=== PATIENT | female | born 1990 | race Caucasian/White ===

== ENCOUNTER 2020-12-05 23:51 | Emergency (ER) | payer MEDICAID, MEDICARE ==
[~2020-12-05] VITALS: Ht 162.6 cm; Wt 132.3 kg
[~2020-12-05 23:51] MED LIST: DICL50TA6 PO; ESTRADIOL PO; LEVO125T PO; PRAV20TA3 PO; RT-ALBUINH IH; flexeril PO
--- NOTE | 2020-12-06 00:07 | ED Chest Pain ---
General Stated Complaint: LOC/CONFUSION/CHEST PAIN/WEAKNESS Source: patient Exam Limitations: no limitations History of Present Illness Date Seen by Provider: Dec 05, 2020 Time Seen by Provider: 23:57 Initial Comments Patient to the ER by private conveyance with her significant other and chief complaint that she just came from the ER at [place], [place] with chief complaint of 2-3 days of progressively worsening chest pain in the middle of her chest with some radiation of pain down her left shoulder and tingling in her left fingertips as well as numbness on the right side of her face. She describe s the pain as though someone is sitting on her chest squeezing all of the air out of her. She also became nauseated and started vomiting tonight while in the car. She has had some loose watery stools. No fever or chills. No sick contacts. Mom and dad both experience heart attacks in her early 40s. She has no known heart disease but she does have asthma and takes breathing treatments as necessary. She is had no wheezing although she does have some shortness of breath subjectively tonight. She says she was at the ER and had labs drawn as well as an EKG which was told to be normal. She did not stick around for her lab results however because she felt it was taking too long. The patient is not on control. She quit smoking 2 months ago. She does not have a history of hypertension but she does have a history of hyperlipidemia. She denies diabetes. She follows with primary care at [facility]. Allergies and Home Medications Allergies Coded Allergies: Penicillins (Verified Allergy, Severe, 11/05/15) ketorolac (Verified Allergy, Severe, 11/05/15) meperidine (Verified Allergy, Severe, 11/05/15) Home Medications Diclofenac Sodium 50 Mg Tablet.dr, 50 MG PO TID PRN for PAIN Prescribed by: ALISSON KULKARNI on 11/05/15 1651 Hydrocodone/Acetaminophen 1 Each Tablet, 1 TAB PO Q6H PRN for PAIN-MODERATE (5- 7) Prescribed by: CORKY ADAMS on 12/06/20 031 Levothyroxine Sodium 125 Mcg Tablet, 125 MCG PO DAILY, (Reported) Ondansetron 4 Mg Tab.rapdis, 4 MG PO Q6H PRN for NAUSEA/VOMITING Prescribed by: CORKY ADAMS on 12/06/20 0310 Pravastatin Sodium 20 Mg Tablet, 20 MG PO DAILY, (Reported) [Estradiol ] , 1 MG PO DIRECTED, (Reported) [flexeril] , 5 MG PO Q8H PRN for PAIN Prescribed by: ALISSON KULKARNI on 11/05/15 1651 Patient Home Medication List Home Medication List Reviewed: Yes Review of Systems Review of Systems Constitutional: No chills, No diaphoresis EENTM: No Blurred Vision, No Double Vision Respiratory: Denies Cough, Denies Shortness of Air Cardiovascular: See HPI, Chest Pain Gastrointestinal: Denies Abdomen Distended, Denies Abdominal Pain Genitourinary: Denies Burning, Denies Discharge Musculoskeletal: No back pain, No joint pain Skin: No pruritus, No rash Psychiatric/Neurological: Anxiety; Denies Depressed Endocrine: Denies Excessive Sweating, Denies Intolerance to Cold, Denies Intolerance to Heat All Other Systems Reviewed Negative Unless Noted: Yes Past Xyxqmxr-Qjxnwr-Iwmkjh Hx Patient Social History Alcohol Use: Denies Use Drug of Choice: Denies Smoking Status: Former Smoker Type Used: Cigarettes Former Smoker, Quit: Sep 10, 2020 Seasonal Allergies Seasonal Allergies: Yes Past Medical History Hysterectomy, Tonsillectomy 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 oz. 115.453384qu; BMI Method:Stated General Appearance: Anxious (Tearful), Obese HEENT: PERRL/EOMI, Pharynx Normal, Moist Mucous Membranes Neck: Full Range of Motion, Normal Inspection Respiratory: Chest Non Tender, Lungs Clear, Normal Breath Sounds, No Accessory Muscle Use, No Respiratory Distress Cardiovascular: Regular Rate, Rhythm, No Edema, Normal Peripheral Pulses Gastrointestinal: Normal Bowel Sounds, Non Tender, Soft Extremity: Normal Capillary Refill, Non Tender, No Pedal Edema Neurologic/Psychiatric: Alert, Oriented x3, No Motor/Sensory Deficits Skin: Normal Color, Warm/Dry Progress/Results/Core Measures Results/Orders Lab Results Laboratory Tests Test 12/06/20 00:05 12/06/20 00:15 12/06/20 02:00 Range/Units White Blood Count 9.6 4.3-11.0 10^3/uL Red Blood Count 5.20 H 3.80-5.11 10^6/uL Hemoglobin 14.6 11.5-16.0 g/dL Hematocrit 44 35-52 % Mean Corpuscular Volume 85 80-99 fL Mean Corpuscular Hemoglobin 28 25-34 pg Mean Corpuscular Hemoglobin Concent 33 32-36 g/dL Red Cell Distribution Width 14.1 10.0-14.5 % Platelet Count 345 130-400 10^3/uL Mean Platelet Volume 10.0 9.0-12.2 fL Immature Granulocyte % (Auto) 0 % Neutrophils (%) (Auto) 56 42-75 % Lymphocytes (%) (Auto) 35 12-44 % Monocytes (%) (Auto) 6 0-12 % Eosinophils (%) (Auto) 2 0-10 % Basophils (%) (Auto) 1 0-10 % Neutrophils # (Auto) 5.4 1.8-7.8 10^3/uL Lymphocytes # (Auto) 3.4 1.0-4.0 10^3/uL Monocytes # (Auto) 0.5 0.0-1.0 10^3/uL Eosinophils # (Auto) 0.2 0.0-0.3 10^3/uL Basophils # (Auto) 0.1 0.0-0.1 10^3/uL Immature Granulocyte # (Auto) 0.0 0.0-0.1 10^3/uL Prothrombin Time 13.9 12.2-14.7 SEC INR Comment 1.0 0.8-1.4 Activated Partial Thromboplast Time 29 24-35 SEC D-Dimer < 0.27 0.00-0.49 UG/ML Sodium Level 142 135-145 MMOL/L Potassium Level 3.4 L 3.6-5.0 MMOL/L Chloride Level 107 98-107 MMOL/L Carbon Dioxide Level 19 L 21-32 MMOL/L Anion Gap 16 H 5-14 MMOL/L Blood Urea Nitrogen 5 L 7-18 MG/DL Creatinine 0.72 0.60-1.30 MG/DL Estimat Glomerular Filtration Rate > 60 BUN/Creatinine Ratio 7 Glucose Level 127 H 70-105 MG/DL Calcium Level 9.8 8.5-10.1 MG/DL Corrected Calcium 8.5-10.1 MG/DL Magnesium Level 2.0 1.6-2.4 MG/DL Total Bilirubin 0.3 0.1-1.0 MG/DL Aspartate Amino Transf (AST/SGOT) 105 H 5-34 U/L Alanine Aminotransferase (ALT/SGPT) 115 H 0-55 U/L Alkaline Phosphatase 82 40-136 U/L Myoglobin 43.1 10.0-92.0 NG/ML Troponin I < 0.028 < 0.028 <0.028 NG/ML B-Type Natriuretic Peptide < 10.0 <100.0 PG/ML Total Protein 8.2 6.4-8.2 GM/DL Albumin 4.7 H 3.2-4.5 GM/DL Lipase 14 8-78 U/L Influenza Type A (RT-PCR) Not Detected Not Detecte Influenza Type B (RT-PCR) Not Detected Not Detecte SARS-CoV-2 RNA (RT-PCR) Not Detected Not Detecte My Orders Orders - CORKY ADAMS Cbc With Automated Diff (12/06/20 00:03) Magnesium (12/06/20 00:03) Chest 1 View, Ap/Pa Only (12/06/20 00:03) Ekg Tracing (12/06/20 00:03) Comprehensive Metabolic Panel (12/06/20 00:03) Myoglobin Serum (12/06/20 00:03) Protime With Inr (12/06/20:03) Partial Thromboplastin Time (12/06/20 00:03) O2 (12/06/20 00:03) Monitor-Rhythm Ecg Trace Only (12/06/20 00:03) Ed Iv/Invasive Line Start (12/06/20 00:03) Lipase (12/06/20 00:03) BNP (12/06/20 00:03) Fibrin Degradation Products (12/06/20 00:03) Troponin I (12/06/20 00:03) Nitroglycerin 0.4 Mg Btl 25's (Nitrostat (12/06/20 00:15) Aspirin Chewable Tablet (Baby Aspirin Ch (12/06/20 00:15) Ondansetron Injection (Zofran Injectio (12/06/20 00:15) Urine Bedside (12/06/20 00:07) Covid 19 Inhouse Test (12/06/20 00:07) Influenza A And B By Pcr (12/06/20 00:07) Lidocaine 2% Viscous 15 Ml (Xylocaine Vi (12/06/20 01:00) Antacid Suspension (Mylanta Suspension (12/06/20 01:00) Famotidine Injection (Pepcid Injection) (12/06/20 00:55) Troponin I (12/06/20 02:00) Morphine Injection (Morphine Injection (12/06/20 02:07) Promethazine Injection (Phenergan Injec (12/06/20 02:45) Fentanyl Inj (Sublimaze Injection) (12/06/20 02:45) Hydrocodone/Apap 5/325 Tablet (Lortab 5 (12/06/20 03:00) Medications Given in ED Vital Signs/I&O 12/05/20 12/05/20 12/06/20 23:55 23:55 03:30 Temp 36.2 36.2 Pulse 77 72 Resp 18 19 B/P (MAP) 126/83 (97) 111/90 (97) Pulse Ox 100 98 O2 Delivery Room Air Room Air Room Air Progress Progress Note #1: Time: 00:10 Progress Note Patient with some chest pain and shortness of air but no hypoxia, tachypnea or tachycardia. Blood pressures acceptable 120s over 70s. Differential includes coronary given her family history, smoking, obesity, hyperlipidemia. Pulmonary embolism is a possibility, infection although she is not having fever. She does not have bronchospasm evident on auscultation. Plan to check some labs including a D-dimer and lipase. EKG unremarkable. Troponin will be pending as well as get a urinalysis and bedside and drug screen. Swab for Covid. Chest x-ray. With a negative initial troponin her heart score would be 3 points and we would probably repeat a 2-hour score before clearing her from active coronary disease. She has already received 324 mg by aspirin from EMS on route to [place] at 1600 today. We will give her 1 more 81 mg tablet of aspirin and trial some nitroglycerin. If this does not help we may trial some GI tract medicines. Progress Note #2: Time: 02:08 Progress Note Patient reports the GI cocktail made no difference in her pain. We will give her 4 mg of morphine IV. Delta troponin obtained. She been having the pain for the past several days so if the second troponin is still undetectable we will have her follow-up outpatient with Dr. Torres. She certainly has some significant cardiac risk factors despite her age including her obesity, hyper lipidemia, family history of mother and father prior to the age of 50 having heart attacks and recent smoking. Initial ECG Impression Date: Dec 06, 2020 Initial ECG Impression Time: 00:00 Initial ECG Rate: 79 Initial ECG Rhythm: Normal Sinus Initial ECG Intervals: Normal Initial ECG Impression: Normal Initial ECG Comparisson: No Previous ECG Available Comment Normal sinus rhythm without clinically relevant ST elevation or depression Diagnostic Imaging Diagonstic Imaging: Xray Plain Films/CT/US/NM/MRI: chest Comments Unremarkable chest x-ray with no acute cardiopulmonary process on 1 view. [facility] [place] NAME: WU ZIMMERMAN [facility] REC#: [id number] PT STATUS: DEP ER : 1990 PHYSICIAN: CORKY ADAMS MD ADMIT DATE: 12/05/20/ER Signed Date of Exam:12/06/20 CHEST 1 VIEW, AP/PA ONLY EXAMINATION: Chest radiograph, portable AP view. DATE: 12/06/2020 12:27 AM INDICATION: 30-year-old female, chest pain. COMPARISON: None. FINDINGS: Heart size and mediastinal contours are unremarkable. There is no identified pneumothorax. There is no large pleural effusion. There is no identified focal airspace consolidation. There are technical limitations of the exam relating to patient body habitus and difficulties with exposure. IMPRESSION: 1. No identified acute cardiopulmonary abnormality. 2. Technically limited exam. Dictated by: Dictated on workstation # [id number] Dict: 12/06/20 0722 Trans: 12/06/20 [address] [facility] [id number] Interpreted by: ZHAO CUNNINGHAM MD Electronically signed by: ZHAO CUNNINGHAM MD 12/06/20 0833 Reviewed: Reviewed by Me Departure Impression Primary Impression: Chest pain Qualified Codes: R07.9 - Chest pain, unspecified Disposition: 01 HOME, SELF-CARE Condition: Stable Departure-Patient Inst. Decision time for Depature: 03:07 Referrals: LIBIA TORRES MD FACP FAC CCDS NO,LOCAL PHYSICIAN (PCP) Primary Care Physician Patient Instructions: Chest Pain (DC) Add. Discharge Instructions: Call Dr. Torres at his clinic on Monday and follow-up in the next 2 to 3 days. Return to the ER promptly for severe, intractable chest pain. Zofran 1 tablet under the tongue every 6 hours as necessary for nausea and/or vomiting. Hydrocodone 1 tablet every 6 hours as necessary for severe breakthrough pain not controlled by Tylenol or Motrin. Scripts Ondansetron (Ondansetron Odt) 4 Mg Tab.rapdis 4 MG PO Q6H PRN for NAUSEA/VOMITING, #8 TAB 0 Refills Prov: CORKY ADAMS 12/06/20 Hydrocodone/Acetaminophen (Hydrocodone-Acetamin 5-325 mg) 1 Each Tablet 1 TAB PO Q6H PRN for PAIN-MODERATE (5-7), #8 TAB 0 Refills Prov: CORKY ADAMS 12/06/20 Copy Copies To 1: LIBIA TORRES MD FACP FACC CCDS CORKY ADAMS Dec 06, 2020 00:07
[2020-12-06] MEDS ORDERED: ONDANSETRON 4 MG/2 ML (SDV) Z0FRAN IVP ONE (00:15)
[2020-12-06] MEDS ORDERED: ASPIRIN 81 MG CHEW (CHILDREN'S ASA) PO ONE (00:15)
[2020-12-06] MEDS ORDERED: NITROGLYCERIN 0.4 MG SL TABS BTL 25'S SL PRN (00:15)
[2020-12-06 00:20] LABS: BASOPHILS # (AUTO) 0.1 10^3/uL (0.0-0.1); BASOPHILS % (AUTO) 1 % (0-10); EOSINOPHILS # (AUTO) 0.2 10^3/uL (0.0-0.3); EOSINOPHILS % (AUTO) 2 % (0-10); HEMATOCRIT 44 % (35-52); HEMOGLOBIN 14.6 g/dL (11.5-16.0); LYMPHOCYTES # (AUTO) 3.4 10^3/uL (1.0-4.0); LYMPHOCYTES % (AUTO) 35 % (12-44); MEAN CORPUSCULAR HEMOGLOBIN 28 pg (25-34); MEAN CORPUSCULAR HGB CONC 33 g/dL (32-36); MEAN CORPUSCULAR VOLUME 85 fL (80-99); MONOCYTES # (AUTO) 0.5 10^3/uL (0.0-1.0); MONOCYTES % (AUTO) 6 % (0-12); NEUTROPHILS # (AUTO) 5.4 10^3/uL (1.8-7.8); NEUTROPHILS % (AUTO) 56 % (42-75); PLATELET COUNT 345 10^3/uL (130-400); WHITE BLOOD COUNT 9.6 10^3/uL (4.3-11.0)
[2020-12-06 00:27] LABS: PROTHROMBIN TIME PATIENT 13.9 SEC (12.2-14.7)
[2020-12-06 00:29] LABS: ALBUMIN 4.7 GM/DL (3.2-4.5); CHLORIDE 107 MMOL/L (98-107); POTASSIUM 3.4 MMOL/L (3.6-5.0); SODIUM 142 MMOL/L (135-145)
[2020-12-06 00:30] LABS: CALCIUM 9.8 MG/DL (8.5-10.1)
[2020-12-06 00:31] LABS: GLUCOSE 127 MG/DL (70-105); TOTAL PROTEIN 8.2 GM/DL (6.4-8.2)
[2020-12-06 00:32] LABS: CARBON DIOXIDE 19 MMOL/L (21-32)
[2020-12-06 00:33] LABS: BILIRUBIN,TOTAL 0.3 MG/DL (0.1-1.0)
[2020-12-06 00:35] LABS: ALKALINE PHOSPHATASE 82 U/L (40-136); CREATININE SERUM 0.72 MG/DL (0.60-1.30); GFR ESTIMATED > 60
[2020-12-06 00:36] LABS: BUN/CREATININE RATIO 7
[2020-12-06 00:38] LABS: ALANINE AMINOTRANSFERASE 115 U/L (0-55)
[2020-12-06 00:39] LABS: LIPASE 14 U/L (8-78)
[2020-12-06] MEDS ORDERED: FAMOTIDINE 20MG/2ML IV (PEPCID) IV STA (00:55)
[2020-12-06] MEDS ORDERED: LIDOCAINE 2% VISCOUS 15 ML UDC PO ONE (01:00)
[2020-12-06] MEDS ORDERED: ANTACID SUSP 30 ML UDC (MYLANTA) PO ONE (01:00)
[2020-12-06] MEDS ORDERED: morphine INJ 10 MG/ML 1ML (SYR OR VIAL) IVP STA (02:07)
[2020-12-06] MEDS ORDERED: PROMETHAZINE INJ 25 MG/ML (PHENERGAN) AMP IVP ONE (02:45)
[2020-12-06] MEDS ORDERED: fentaNYL INJ 100 MCG/2 ML AMP IVP ONE (02:45)
[2020-12-06] MEDS ORDERED: HYDROcodone/APAP 5 MG/325 MG (LORTAB) TAB PO ONE (03:00)
[2020-12-06] MEDS ORDERED: ONDA4TAB11 PO (03:10)
[2020-12-06] MEDS ORDERED: ACHD5005 PO (03:10)
[2020-12-06 03:30] VITALS: BP 111/90
--- NOTE | 2020-12-06 07:28 | Diagnostic Imaging Report ---
EXAMINATION: Chest radiograph, portable AP view. DATE: 12/06/2020 12:27 AM INDICATION: 30-year-old female, chest pain. COMPARISON: None. FINDINGS: Heart size and mediastinal contours are unremarkable. There is no identified pneumothorax. There is no large pleural effusion. There is no identified focal airspace consolidation. There are technical limitations of the exam relating to patient body habitus and difficulties with exposure. IMPRESSION: 1. No identified acute cardiopulmonary abnormality. 2. Technically limited exam. Dictated by: Dictated on workstation # [id number]
== END 2020-12-06 03:30 | disposition home or self-care (01) ==
LOC: EDUNIT# 23:51 → ER 23:52
DX: R07.9 Chest pain, unspecified (principal); I10 Essential (primary) hypertension; J45.909 Unspecified asthma, uncomplicated; G89.29 Other chronic pain; M54.9 Dorsalgia, unspecified; E03.9 Hypothyroidism, unspecified; E66.9 Obesity, unspecified; Z20.822 Contact with and (suspected) exposure to COVID-19; Z87.891 Personal history of nicotine dependence; Z79.890 Hormone replacement therapy; Z68.45 Body mass index [BMI] 70 or greater, adult; Z79.891 Long term (current) use of opiate analgesic; Z79.899 Other long term (current) drug therapy
CPT/HCPCS: 36415; 71045; 80053; 83690; 83735; 83874; 83880; 84484; 85025; 85379; 85610; 85730; 87636; 93005; 93041; 96374; 96375

== ENCOUNTER 2022-03-18 20:05 | Emergency (ER) | payer MEDICAID ==
[~2022-03-18] VITALS: Ht 170 cm; Wt 113.0 kg
[~2022-03-18 20:05] MED LIST changes: +ACHD5005 PO; +ONDA4TAB11 PO
--- NOTE | 2022-03-18 20:12 | ED General ---
General Stated Complaint: BACK PAIN Source of Information: Patient, EMS Exam Limitations: No Limitations History of Present Illness Date Seen by Provider: Mar 18, 2022 Time Seen by Provider: 20:10 Initial Comments To ER by EMS from somewhere out in front of [place] where she complains of some low back pain that radiates around her abdomen which started suddenly after she was at [facility] trying to collect a [place] that she had 1 sometime back. Her family dropped her off there because they "do not give a fuck about her". She was at the [facility] when she was kicked off the property and told not to come back and the police were called she states. She denies any drug use for several months. Timing/Duration: 1-3 Hours Severity: Moderate Associated Systoms: Denies Symptoms Allergies and Home Medications Allergies Coded Allergies: Penicillins (Verified Allergy, Severe, 11/05/15) ketorolac (Verified Allergy, Severe, 11/05/15) meperidine (Verified Allergy, Severe, 11/05/15) Patient Home Medication List Home Medication List Reviewed: Yes Albuterol Sulfate (Proair Hfa) 8.5 Gm Hfa.aer.ad, 1-2 PUFF IH, (Reported) Entered as Reported by: RONI ALSTON on 11/05/15 164 Diclofenac Sodium (Diclofenac Sodium) 50 Mg Tablet.dr, 50 MG PO TID PRN for PAIN Prescribed by: ALISSON KULKARNI on 11/05/15 165 Hydrocodone/Acetaminophen (Hydrocodone-Acetamin 5-325 mg) 1 Each Tablet, 1 TAB PO Q6H PRN for PAIN-MODERATE (5-7) Prescribed by: CORKY ADAMS on 12/06/20 031 Levothyroxine Sodium (Synthroid) 125 Mcg Tablet, 125 MCG PO DAILY, (Reported) Entered as Reported by: RONI ALSTON on 11/05/15 164 Ondansetron (Ondansetron Odt) 4 Mg Tab.rapdis, 4 MG PO Q6H PRN for NAUSEA/VOMITING Prescribed by: CORKY ADAMS on 12/06/20 031 Pravastatin Sodium (Pravastatin Sodium) 20 Mg Tablet, 20 MG PO DAILY, (Reported) Entered as Reported by: RONI ALSTON on 11/05/15 164 [Estradiol ] , 1 MG PO DIRECTED, (Reported) Entered as Reported by: RONI ALSTON on 11/05/15 1643 [flexeril] , 5 MG PO Q8H PRN for PAIN Prescribed by: ALISSON KULKARNI on 11/05/15 1651 Review of Systems Review of Systems Constitutional: see HPI EENTM: see HPI Respiratory: no symptoms reported Cardiovascular: no symptoms reported Gastrointestinal: abdominal pain Genitourinary: no symptoms reported Musculoskeletal: see HPI Skin: no symptoms reported Psychiatric/Neurological: See HPI Hematologic/Lymphatic: No Symptoms Reported Immunological/Allergic: no symptoms reported Past Ttmxfqa-Qxofuv-Ejkmce Hx Seasonal Allergies Seasonal Allergies: Yes Past Medical History Surgeries: Yes (TUMOR REMOVED FROM CERVIX) Hysterectomy, Tonsillectomy Respiratory: Yes Asthma Cardiac: No Neurological: Yes 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 oz. 115.281705xa; 50.00 BMI Method:Stated General Appearance: No Apparent Distress, WD/WN, Other (Anxious, tearful, unable to sit still. Writhing in bed. Unable to localize where her pain is at. Conversation is tangential.) Eyes: Bilateral Eye Normal Inspection, Bilateral Eye PERRL, Bilateral Eye EOMI HEENT: PERRL/EOMI, TMs Normal, Other (Dry mucous membranes) Neck: Full Range of Motion, Normal Inspection Respiratory: No Accessory Muscle Use, No Respiratory Distress Cardiovascular: Regular Rate, Rhythm, Normal Peripheral Pulses Gastrointestinal: Normal Bowel Sounds, Non Tender, Soft Extremity: Normal Capillary Refill, Normal Inspection Neurologic/Psychiatric: Alert, Oriented x3 Skin: Normal Color, Warm/Dry Progress/Results/Core Measures Suspected Sepsis SIRS Temperature: Pulse: Respiratory Rate: Laboratory Tests 03/18/22 20:22: White Blood Count 16.5H Blood Pressure / Mean: Laboratory Tests 03/18/22 20:22: Creatinine 0.85, Platelet Count 435H, Total Bilirubin 0.7 Results/Orders Lab Results Laboratory Tests Test 03/18/22 20:22 03/18/22 20:24 Range/Units White Blood Count 16.5 H 4.3-11.0 10^3/uL Red Blood Count 5.32 H 3.80-5.11 10^6/uL Hemoglobin 14.8 11.5-16.0 g/dL Hematocrit 45 35-52 % Mean Corpuscular Volume 84 80-99 fL Mean Corpuscular Hemoglobin 28 25-34 pg Mean Corpuscular Hemoglobin Concent 33 32-36 g/dL Red Cell Distribution Width 12.9 10.0-14.5 % Platelet Count 435 H 130-400 10^3/uL Mean Platelet Volume 10.1 9.0-12.2 fL Immature Granulocyte % (Auto) 0 % Neutrophils (%) (Auto) 65 42-75 % Lymphocytes (%) (Auto) 25 12-44 % Monocytes (%) (Auto) 8 0-12 % Eosinophils (%) (Auto) 2 0-10 % Basophils (%) (Auto) 1 0-10 % Neutrophils # (Auto) 10.8 H 1.8-7.8 10^3/uL Lymphocytes # (Auto) 4.1 H 1.0-4.0 10^3/uL Monocytes # (Auto) 1.3 H 0.0-1.0 10^3/uL Eosinophils # (Auto) 0.2 0.0-0.3 10^3/uL Basophils # (Auto) 0.1 0.0-0.1 10^3/uL Immature Granulocyte # (Auto) 0.1 0.0-0.1 10^3/uL Neutrophils % (Manual) 71 % Lymphocytes % (Manual) 23 % Monocytes % (Manual) 4 % Eosinophils % (Manual) 2 % Blood Morphology Comment NORMAL Sodium Level 140 135-145 MMOL/L Potassium Level 3.8 3.6-5.0 MMOL/L Chloride Level 107 98-107 MMOL/L Carbon Dioxide Level 17 L 21-32 MMOL/L Anion Gap 16 H 5-14 MMOL/L Blood Urea Nitrogen 16 7-18 MG/DL Creatinine 0.85 0.60-1.30 MG/DL Estimat Glomerular Filtration Rate 93 BUN/Creatinine Ratio 19 Glucose Level 156 H 70-105 MG/DL Calcium Level 10.3 H 8.5-10.1 MG/DL Corrected Calcium 8.5-10.1 MG/DL Total Bilirubin 0.7 0.1-1.0 MG/DL Aspartate Amino Transf (AST/SGOT) 28 5-34 U/L Alanine Aminotransferase (ALT/SGPT) 30 0-55 U/L Alkaline Phosphatase 91 40-136 U/L Total Protein 8.7 H 6.4-8.2 GM/DL Albumin 5.1 H 3.2-4.5 GM/DL Serum Test, Qualitative NEGATIVE NEGATIVE Urine Opiates Screen NEGATIVE NEGATIVE Urine Oxycodone Screen NEGATIVE NEGATIVE Urine Methadone Screen NEGATIVE NEGATIVE Urine Propoxyphene Screen NEGATIVE NEGATIVE Urine Barbiturates Screen POSITIVE H NEGATIVE Ur Tricyclic Antidepressants Screen POSITIVE H NEGATIVE Urine Phencyclidine Screen NEGATIVE NEGATIVE Urine Amphetamines Screen POSITIVE H NEGATIVE Urine Methamphetamines Screen POSITIVE H NEGATIVE Urine Benzodiazepines Screen POSITIVE H NEGATIVE Urine Cocaine Screen NEGATIVE NEGATIVE Urine Cannabinoids Screen POSITIVE H NEGATIVE Urine Color YELLOW Urine Clarity CLEAR Urine pH 5.5 5-9 Urine Specific [place] >=1.030 1.016-1.022 Urine Protein 2+ H NEGATIVE Urine Glucose (UA) NEGATIVE NEGATIVE Urine Ketones NEGATIVE NEGATIVE Urine Nitrite NEGATIVE NEGATIVE Urine Bilirubin 1+ H NEGATIVE Urine Urobilinogen 0.2 < = 1.0 MG/DL Urine Leukocyte Esterase NEGATIVE NEGATIVE Urine RBC (Auto) NEGATIVE NEGATIVE Urine RBC 2-5 H /HPF Urine WBC 2-5 /HPF Urine Squamous Epithelial Cells 5-10 /HPF Urine Crystals NONE /LPF Urine Bacteria MODERATE H /HPF Urine Casts PRESENT /LPF Urine Hyaline Casts 10-25 H /LPF Urine Mucus LARGE H /LPF Urine Culture Indicated YES My Orders Orders - ALISSON KULKARNI APRN Cbc With Automated Diff (03/18/22 20:08) Comprehensive Metabolic Panel (03/18/22 20:08) Drug Screen Stat (Urine) (03/18/22 20:08) Ct Abd/Pelvis Wo(Kidney Stone) (03/18/22 20:08) Ed Iv/Invasive Line Start (03/18/22 20:08) Lorazepam Injection (Ativan Injection) (03/18/22 20:15) Ns Iv 1000 Ml (Sodium Chloride 0.9%) (03/18/22 20:15) Hcg,Qualitative Serum (03/18/22 20:23) Ua Culture If Indicated (03/18/22 20:36) Manual Differential (03/18/22 20:22) Urine Culture (03/18/22 20:24) Medications Given in ED Current Medications Medications Dose Ordered Sig/Evans Route Start Time Stop Time Status Last Admin Dose Admin Lorazepam 1 mg ONCE ONCE IVP 03/18/22 20:15 03/18/22 20:16 DC 03/18/22 20:25 1 MG Vital Signs/I&O 03/18/22 20:05 Temp 36.1 Pulse 135 Resp 20 B/P (MAP) 147/106 (120) Pulse Ox 100 O2 Delivery Room Air Capillary Refill : Departure Communication (Admissions) NAME: WU ZIMMERMAN [facility] REC#: [id number] PT STATUS: REG ER : 1990 PHYSICIAN: ALISSON KULKARNI APRN ADMIT DATE: 03/18/22/ER Draft Date of Exam:03/18/22 CT ABD/PELVIS WO(KIDNEY STONE) PROCEDURE: CT urinary tract, rule out kidney stone. TECHNIQUE: Multiple contiguous axial images were obtained through the abdomen and pelvis without the use of intravenous contrast. Auto Exposure Controls were utilized during the CT exam to meet ALARA standards for radiation dose reduction. INDICATION: Abdominal pain and back pain. COMPARISON: None. FINDINGS: There is motion artifact throughout the exam resulting in suboptimal evaluation. Lung bases are clear. The heart is normal in size. The liver demonstrates no focal lesion. The liver is large measuring 23 cm in length. Cholecystectomy clips are noted. The spleen is large measuring 15.8 cm. The spleen otherwise appears normal. The adrenal glands are normal. The kidneys demonstrate no hydronephrosis or calculi. The appendix is normal. The bowel loops are nondistended without obstruction. The aorta is normal in caliber. No adenopathy is seen. No free fluid or free air is seen. The distal colon wall appears prominent but this is thought to be due to nondistention. No acute osseous abnormality is seen. IMPRESSION: 1. No hydronephrosis or renal calculi. 2. Hepatosplenomegaly. Dictated on workstation # [id number] Dict: 03/18/222112 Trans: [id number]/18/[id number] Interpreted by: NACHO MILLER MD Electronically signed by: Impression Primary Impression: Methamphetamine abuse Disposition: HOME, SELF-CARE Condition: Stable Departure-Patient Inst. Decision time for Depature: 21:24 Referrals: [facility] (PCP/Family) Primary Care Physician Patient Instructions: Drug Abuse and Drug Addiction (DC) ALISSON KULKARNI APRN Mar 18, 2022 20:12
[2022-03-18] MEDS ORDERED: LORazepam INJ 2 MG/ML (ATIVAN) VIAL IVP ONE (20:15)
[2022-03-18] MEDS ORDERED: NS IV 1000 ML 1,000 ML IV SCH (20:15)
[2022-03-18 20:35] LABS: BASOPHILS # (AUTO) 0.1 10^3/uL (0.0-0.1); BASOPHILS % (AUTO) 1 % (0-10); EOSINOPHILS # (AUTO) 0.2 10^3/uL (0.0-0.3); EOSINOPHILS % (AUTO) 2 % (0-10); HEMATOCRIT 45 % (35-52); HEMOGLOBIN 14.8 g/dL (11.5-16.0); LYMPHOCYTES # (AUTO) 4.1 10^3/uL (1.0-4.0); LYMPHOCYTES % (AUTO) 25 % (12-44); MEAN CORPUSCULAR HEMOGLOBIN 28 pg (25-34); MEAN CORPUSCULAR HGB CONC 33 g/dL (32-36); MEAN CORPUSCULAR VOLUME 84 fL (80-99); MEAN PLATELET VOLUME 10.1 fL (9.0-12.2); MONOCYTES # (AUTO) 1.3 10^3/uL (0.0-1.0); MONOCYTES % (AUTO) 8 % (0-12); NEUTROPHILS # (AUTO) 10.8 10^3/uL (1.8-7.8); NEUTROPHILS % (AUTO) 65 % (42-75); PLATELET COUNT 435 10^3/uL (130-400); WHITE BLOOD COUNT 16.5 10^3/uL (4.3-11.0)
[2022-03-18 20:41] LABS: BILIRUBIN,URINE 1+ (NEGATIVE); CLARITY,URINE CLEAR; COLOR,URINE YELLOW; GLUCOSE, URINE (UA) NEGATIVE (NEGATIVE); KETONES,URINE NEGATIVE (NEGATIVE); LEUKOCYTE ESTERASE ,URINE NEGATIVE (NEGATIVE); NITRITE,URINE NEGATIVE (NEGATIVE); PH,URINE 5.5 (5-9); PROTEIN,URINE 2+ (NEGATIVE)
[2022-03-18 20:50] LABS: ALANINE AMINOTRANSFERASE 30 U/L (0-55); ALBUMIN 5.1 GM/DL (3.2-4.5); ALKALINE PHOSPHATASE 91 U/L (40-136); BILIRUBIN,TOTAL 0.7 MG/DL (0.1-1.0); BUN/CREATININE RATIO 19; CALCIUM 10.3 MG/DL (8.5-10.1); CARBON DIOXIDE 17 MMOL/L (21-32); CHLORIDE 107 MMOL/L (98-107); CREATININE SERUM 0.85 MG/DL (0.60-1.30); GFR ESTIMATED 93; GLUCOSE 156 MG/DL (70-105); POTASSIUM 3.8 MMOL/L (3.6-5.0); SODIUM 140 MMOL/L (135-145); TOTAL PROTEIN 8.7 GM/DL (6.4-8.2)
[2022-03-18 20:52] LABS: AMPHETAMINE SCREEN, URINE POSITIVE (NEGATIVE); BARBITURATE SCREEN URINE POSITIVE (NEGATIVE); BENZODIAZEPINES SCREEN URINE POSITIVE (NEGATIVE); CANNABINOID SCREEN, URINE POSITIVE (NEGATIVE); COCAINE SCREEN URINE NEGATIVE (NEGATIVE); OPIATE SCREEN URINE NEGATIVE (NEGATIVE)
[2022-03-18 20:53] LABS: METHADONE STAT NEGATIVE (NEGATIVE); OXYCODONE STAT NEGATIVE (NEGATIVE); PROPOXYPHENE STAT NEGATIVE (NEGATIVE); TRICYCLIC ANTIDEPRESSANTS SCRE POSITIVE (NEGATIVE)
[2022-03-18 20:57] LABS: BACTERIA,URINE MODERATE /HPF
[2022-03-18 21:00] LABS: EOSINOPHILS % (MANUAL) 2 %; LYMPHOCYTES % (MANUAL) 23 %; MONOCYTES % (MANUAL) 4 %; NEUTROPHILS % (MANUAL) 71 %; RBC MORPH NORMAL
--- NOTE | 2022-03-18 21:18 | Diagnostic Imaging Report ---
PROCEDURE: CT urinary tract, rule out kidney stone. TECHNIQUE: Multiple contiguous axial images were obtained through the abdomen and pelvis without the use of intravenous contrast. Auto Exposure Controls were utilized during the CT exam to meet ALARA standards for radiation dose reduction. INDICATION: Abdominal pain and back pain. COMPARISON: None. FINDINGS: There is motion artifact throughout the exam resulting in suboptimal evaluation. Lung bases are clear. The heart is normal in size. The liver demonstrates no focal lesion. The liver is large measuring 23 cm in length. Cholecystectomy clips are noted. The spleen is large measuring 15.8 cm. The spleen otherwise appears normal. The adrenal glands are normal. The kidneys demonstrate no hydronephrosis or calculi. The appendix is normal. The bowel loops are nondistended without obstruction. The aorta is normal in caliber. No adenopathy is seen. No free fluid or free air is seen. The distal colon wall appears prominent but this is thought to be due to nondistention. No acute osseous abnormality is seen. IMPRESSION: 1. No hydronephrosis or renal calculi. 2. Hepatosplenomegaly. Dictated by: Dictated on workstation # [id number]
[2022-03-18 21:32] VITALS: BP 142/101
== END 2022-03-18 21:34 | disposition home or self-care (01) ==
LOC: EDUNIT# 20:05 → ER 20:07
DX: F15.10 Other stimulant abuse, uncomplicated (principal); Z28.310 Unvaccinated for COVID-19
CPT/HCPCS: 36415; 74176; 80053; 80306; 81000; 84703; 85007; 85027; 87077; 87088

== ENCOUNTER 2023-01-11 03:18 | Emergency (ER) | payer MEDICAID ==
[~2023-01-11 03:18] MED LIST changes: +ALBU8.5H6 IH; -RT-ALBUINH IH
[2023-01-11] MEDS ORDERED: diphenhydrAMINE INJ 50 MG/ML VIAL IVP ONE (03:30)
[2023-01-11] MEDS ORDERED: DroPERidol INJECTION 5 MG/2 ML (ED ONLY!) IV ONE (03:30)
--- NOTE | 2023-01-11 03:32 | ED Abdominal Pain ---
General Stated Complaint: ABD PAIN Source of Information: Patient, EMS, Old Records Exam Limitations: No Limitations (KEYUR ADAMS MD) History of Present Illness Date Seen by Provider: Jan 11, 2023 Time Seen by Provider: 03:19 Initial Comments 32-year-old female coming in due to lower abdominal pain. She states it feels like she is having a baby, although she is not . She states that it started 5 hours ago, although she was seen in [facility] a couple days ago for the same. Denies any dysuria, fever, nausea, vomiting, diarrhea, or any other concerns. (KEYUR ADAMS MD) Allergies and Home Medications Allergies Coded Allergies: Penicillins (Verified Allergy, Severe, 11/05/15) ketorolac (Verified Allergy, Severe, 11/05/15) meperidine (Verified Allergy, Severe, 11/05/15) Patient Home Medication List Home Medication List Reviewed: Yes (KEYUR ADAMS MD) Albuterol Sulfate (Ventolin Hfa) 8.5 Gm Hfa.aer.ad, 1-2 PUFF IH, (Reported) Entered as Reported by: RONI ALSTON on 11/05/151642 Diclofenac Sodium (Diclofenac Sodium) 50 Mg Tablet.dr, 50 MG PO TID PRN for PAIN Prescribed by: ALISSON KULKARNI on 11/05/151650 Hydrocodone/Acetaminophen (Hydrocodone-Acetamin 5-325 mg) 1 Each Tablet, 1 TAB PO Q6H PRN for PAIN-MODERATE (5-7) Prescribed by: CORKY ADAMS on 12/06/20 031 Levothyroxine Sodium (Synthroid) 125 Mcg Tablet, 125 MCG PO DAILY, (Reported) Entered as Reported by: RONI ALSTON on 11/05/151642 Ondansetron (Ondansetron Odt) 4 Mg Tab.rapdis, 4 MG PO Q6H PRN for NAUSEA/VOMITING Prescribed by: CORKY ADAMS on 12/06/20 031 Pravastatin Sodium (Pravastatin Sodium) 20 Mg Tablet, 20 MG PO DAILY, (Reported) Entered as Reported by: RONI ALSTON on 11/05/151642 [Estradiol ] , 1 MG PO DIRECTED, (Reported) Entered as Reported by: RONI ALSTON on 5/26/16 1643 [flexeril] , 5 MG PO Q8H PRN for PAIN Prescribed by: ALISSON KULKARNI on 11/05/15 1651 Review of Systems Review of Systems Constitutional: no symptoms reported EENTM: No Symptoms Reported Respiratory: No Symptoms Reported Gastrointestinal: See HPI Genitourinary: No Symptoms Reported Musculoskeletal: no symptoms reported Skin: no symptoms reported Psychiatric/Neurological: No Symptoms Reported Endocrine: No Symptoms Reported Hematologic/Lymphatic: No Symptoms Reported (KEYUR ADAMS MD) Past Wtyhtfp-Ifvvqs-Tbcsfs Hx Seasonal Allergies Seasonal Allergies: Yes (KEYUR ADAMS MD) Past Medical History Surgeries: Yes (TUMOR REMOVED FROM CERVIX) Hysterectomy, Tonsillectomy Respiratory: Yes Asthma Cardiac: No Neurological: Yes 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 oz. [id number]; 39.00 BMI Method:Stated General Appearance: WD/WN HEENT: PERRL/EOMI, normal ENT inspection, pharynx normal Neck: non-tender, full range of motion, supple, normal inspection Respiratory: chest non-tender, lungs clear, normal breath sounds, no respiratory distress, no accessory muscle use Cardiovascular: regular rate, rhythm, no edema, no murmur Gastrointestinal: normal bowel sounds, soft; No distended, No guarding, No rebound; tenderness Back: normal inspection, no CVA tenderness Neurologic/Psychiatric: no motor/sensory deficits, alert, normal mood/affect Skin: normal color, warm/dry (KEYUR ADAMS MD) Progress/Results/Core Measures Results/Orders Lab Results Laboratory Tests Test 01/11/23 03:30 01/11/23 03:40 Range/Units White Blood Count 14.3 H 4.3-11.0 10^3/uL Red Blood Count 4.84 3.80-5.11 10^6/uL Hemoglobin 13.4 11.5-16.0 g/dL Hematocrit 40 35-52 % Mean Corpuscular Volume 83 80-99 fL Mean Corpuscular Hemoglobin 28 25-34 pg Mean Corpuscular Hemoglobin Concent 33 32-36 g/dL Red Cell Distribution Width 13.6 10.0-14.5 % Platelet Count 395 130-400 10^3/uL Mean Platelet Volume 9.8 9.0-12.2 fL Immature Granulocyte % (Auto) 0 % Neutrophils (%) (Auto) 63 42-75 % Lymphocytes (%) (Auto) 29 12-44 % Monocytes (%) (Auto) 6 0-12 % Eosinophils (%) (Auto) 1 0-10 % Basophils (%) (Auto) 1 0-10 % Neutrophils # (Auto) 9.0 H 1.8-7.8 10^3/uL Lymphocytes # (Auto) 4.1 H 1.0-4.0 10^3/uL Monocytes # (Auto) 0.9 0.0-1.0 10^3/uL Eosinophils # (Auto) 0.1 0.0-0.3 10^3/uL Basophils # (Auto) 0.1 0.0-0.1 10^3/uL Immature Granulocyte # (Auto) 0.1 0.0-0.1 10^3/uL Neutrophils % (Manual) 58 % Lymphocytes % (Manual) 32 % Monocytes % (Manual) 7 % Reactive Lymphocytes 3 % Blood Morphology Comment NORMAL Sodium Level 143 135-145 MMOL/L Potassium Level 3.5 L 3.6-5.0 MMOL/L Chloride Level 110 H 98-107 MMOL/L Carbon Dioxide Level 18 L 21-32 MMOL/L Anion Gap 15 H 5-14 MMOL/L Blood Urea Nitrogen 10 7-18 MG/DL Creatinine 0.76 0.60-1.30 MG/DL Estimat Glomerular Filtration Rate 105 BUN/Creatinine Ratio 13 Glucose Level 153 H 70-105 MG/DL Calcium Level 10.1 8.5-10.1 MG/DL Corrected Calcium 8.5-10.1 MG/DL Magnesium Level 1.9 1.6-2.4 MG/DL Total Bilirubin 0.6 0.1-1.0 MG/DL Aspartate Amino Transf (AST/SGOT) 74 H 5-34 U/L Alanine Aminotransferase (ALT/SGPT) 63 H 0-55 U/L Alkaline Phosphatase 97 40-136 U/L Total Protein 8.1 6.4-8.2 GM/DL Albumin 4.7 H 3.2-4.5 GM/DL Lipase 11 8-78 U/L Serum Test, Qualitative NEGATIVE NEGATIVE Urine Opiates Screen NEGATIVE NEGATIVE Urine Oxycodone Screen NEGATIVE NEGATIVE Urine Methadone Screen NEGATIVE NEGATIVE Urine Propoxyphene Screen NEGATIVE NEGATIVE Urine Barbiturates Screen NEGATIVE NEGATIVE Ur Tricyclic Antidepressants Screen NEGATIVE NEGATIVE Urine Phencyclidine Screen NEGATIVE NEGATIVE Urine Amphetamines Screen POSITIVE H NEGATIVE Urine Methamphetamines Screen POSITIVE H NEGATIVE Urine Benzodiazepines Screen POSITIVE H NEGATIVE Urine Cocaine Screen NEGATIVE NEGATIVE Urine Cannabinoids Screen POSITIVE H NEGATIVE (DRISS JUDGE DO) Medications Given in ED Current Medications Medications Dose Ordered Sig/Evans Route Start Time Stop Time Status Last Admin Dose Admin Diphenhydramine HCl 12.5 mg ONCE ONCE IVP 01/11/23 03:30 01/11/23 03:31 DC 01/11/23 03:37 12.5 MG Droperidol 2.5 mg ONCE ONCE IV 01/11/23 03:30 01/11/23 03:31 DC 01/11/23 03:38 2.5 MG Iohexol 100 ml ONCE ONCE IV 01/11/23 04:00 01/11/23 04:01 DC 01/11/23 04:04 100 ML Sodium Chloride 100 ml ONCE ONCE IV 01/11/23 04:00 01/11/23 04:01 DC 01/11/23 04:04 80 ML (DRISS JUDGE DO) Vital Signs/I&O 01/11/23 03:41 Temp 36.8 Pulse 109 Resp 16 B/P (MAP) 140/89 (106) (DRISS JUDGE DO) Progress Progress Note : Progress Note 32-year-old female with above history coming in via EMS due to lower abdominal pain. ABCs were intact and vitals were stable on presentation. Physical exam with lower abdominal tenderness but no signs of peritonitis. An IV was placed and basic labs were obtained and were significant for slightly elevated white blood cell count, normal creatinine, negative test, UDS with amphetamines, benzos, cannabis. I contacted [facility] and had her most recent visit faxed over. She was seen on January 08 for the same. She had basic labs done, UDS, urinalysis which were all unremarkable other than she also had meth in her system that day. She using meth earlier to that provider as well. She received Ativan that day which is why her benzo screen popped positive today. CT abd/pelvis ordered and interpreted by me showing no stranding, no free air, no obvious abnormality. We are awaiting the official CT read at this time. The patient will be signed out to the oncoming physician. She is feeling better after the droperidol and I suspect she will be discharged. (KEYUR ADAMS MD) Progress Note : Time: 07:[address] abdomen pelvis read was delayed. I called CT to discuss and they stated that it had been removed from stat rad and someone from [facility] picked it up. It has been red but there is no cylinder devalver. They call and shortly thereafter we have the cylinder devalver. This shows some chronic colitis changes with a possible acute component as well. No surgical findings. The patient is feeling much better after the provided medications. She has a nonsurgical abdominal exam. She is discharged home in stable condition. (DRISS JUDGE DO) Diagnostic Imaging Diagonstic Imaging: CT (abd/pelvis) (KEYUR ADAMS MD) Departure Impression Primary Impression: Abdominal pain Qualified Codes: R10.30 - Lower abdominal pain, unspecified Additional Impression: Methamphetamine use Disposition: HOME, SELF-CARE Condition: Stable Departure-Patient Inst. Referrals: NO,LOCAL PHYSICIAN (PCP/Family) Primary Care Physician Patient Instructions: Abdominal Pain, Adult ED Add. Discharge Instructions: Take ibuprofen and Tylenol as needed for pain. Return to the emergency department for any severe concerns. Follow-up with your primary doctor for any nonemergent needs. KEYUR ADAMS MD Jan 11, 2023 03:32 DRISS JUDGE DO Jan 11, 2023 07:29
[2023-01-11 03:40] LABS: BASOPHILS # (AUTO) 0.1 10^3/uL (0.0-0.1); BASOPHILS % (AUTO) 1 % (0-10); EOSINOPHILS # (AUTO) 0.1 10^3/uL (0.0-0.3); EOSINOPHILS % (AUTO) 1 % (0-10); HEMATOCRIT 40 % (35-52); HEMOGLOBIN 13.4 g/dL (11.5-16.0); LYMPHOCYTES # (AUTO) 4.1 10^3/uL (1.0-4.0); LYMPHOCYTES % (AUTO) 29 % (12-44); MEAN CORPUSCULAR HEMOGLOBIN 28 pg (25-34); MEAN CORPUSCULAR HGB CONC 33 g/dL (32-36); MEAN CORPUSCULAR VOLUME 83 fL (80-99); MEAN PLATELET VOLUME 9.8 fL (9.0-12.2); MONOCYTES # (AUTO) 0.9 10^3/uL (0.0-1.0); MONOCYTES % (AUTO) 6 % (0-12); NEUTROPHILS % (AUTO) 63 % (42-75); PLATELET COUNT 395 10^3/uL (130-400); WHITE BLOOD COUNT 14.3 10^3/uL (4.3-11.0)
[2023-01-11 03:41] VITALS: BP_DIAS 89
[2023-01-11 03:50] LABS: ALBUMIN 4.7 GM/DL (3.2-4.5); CHLORIDE 110 MMOL/L (98-107); POTASSIUM 3.5 MMOL/L (3.6-5.0); SODIUM 143 MMOL/L (135-145)
[2023-01-11 03:52] LABS: CALCIUM 10.1 MG/DL (8.5-10.1)
[2023-01-11 03:53] LABS: GLUCOSE 153 MG/DL (70-105); TOTAL PROTEIN 8.1 GM/DL (6.4-8.2)
[2023-01-11 03:54] LABS: CARBON DIOXIDE 18 MMOL/L (21-32)
[2023-01-11 03:55] LABS: BILIRUBIN,TOTAL 0.6 MG/DL (0.1-1.0)
[2023-01-11 03:56] LABS: ALKALINE PHOSPHATASE 97 U/L (40-136); LYMPHOCYTES % (MANUAL) 32 %; MONOCYTES % (MANUAL) 7 %; NEUTROPHILS % (MANUAL) 58 %; RBC MORPH NORMAL; REACTIVE LYMPHOCYTES 3 %
[2023-01-11 03:57] LABS: CREATININE SERUM 0.76 MG/DL (0.60-1.30); GFR ESTIMATED 105
[2023-01-11 03:58] LABS: BUN/CREATININE RATIO 13
[2023-01-11 03:59] LABS: ALANINE AMINOTRANSFERASE 63 U/L (0-55); MAGNESIUM 1.9 MG/DL (1.6-2.4)
[2023-01-11 04:00] LABS: LIPASE 11 U/L (8-78)
[2023-01-11] MEDS ORDERED: NS 100 ML (IVPB) BAG IV ONE (04:00)
[2023-01-11] MEDS ORDERED: HOLD METFORMIN - RECEIVED CONTRAST 20 ML VIAL IV SCH (04:00)
[2023-01-11] MEDS ORDERED: IOHEXOL 350 MG/ML 100 ML (OMNIPAQUE 350) VIAL IV ONE (04:00)
[2023-01-11 04:05] LABS: AMPHETAMINE SCREEN, URINE POSITIVE (NEGATIVE); BARBITURATE SCREEN URINE NEGATIVE (NEGATIVE); BENZODIAZEPINES SCREEN URINE POSITIVE (NEGATIVE); CANNABINOID SCREEN, URINE POSITIVE (NEGATIVE); COCAINE SCREEN URINE NEGATIVE (NEGATIVE); METHADONE STAT NEGATIVE (NEGATIVE); OPIATE SCREEN URINE NEGATIVE (NEGATIVE); OXYCODONE STAT NEGATIVE (NEGATIVE); PROPOXYPHENE STAT NEGATIVE (NEGATIVE); TRICYCLIC ANTIDEPRESSANTS SCRE NEGATIVE (NEGATIVE)
[2023-01-11] MEDS ORDERED: NS IV 1000 ML 1,000 ML IV STA (04:46)
--- NOTE | 2023-01-11 07:24 | Diagnostic Imaging Report ---
PROCEDURE: CT abdomen and pelvis with contrast. TECHNIQUE: Multiple contiguous axial images were obtained through the abdomen and pelvis after administration of intravenous contrast. Auto Exposure Controls were utilized during the CT exam to meet ALARA standards for radiation dose reduction. All CT scans use one or more of the following dose optimizing techniques: automated exposure control, MA and/or KvP adjustment based on patient size and exam type or iterative reconstruction. Date: January 11, 2023. Indication: 32-year-old female, lower abdominal pain. Comparison: CT abdomen pelvis March 18, 2022. Findings: There is respiratory motion artifact. There is mild dependent atelectasis in the right and left lower lobes. The heart is not enlarged. There is no identified pericardial effusion. The liver is unremarkable in size and contour. There is no identified liver lesion. The main, right, and left portal veins are patent. The gallbladder is surgically absent. There is no biliary ductal dilation. Unremarkable appearance of the pancreas. The spleen is normal in size. The adrenal glands are unremarkable. Unremarkable appearance of the renal parenchyma. The urinary collecting systems are not distended. There is no identified renal or ureteral stone. Urinary bladder is underdistended and not well evaluated. The uterus is not well seen and may be surgically absent. There is fatty wall thickening of the right colon and sigmoid colon. There are also some areas of wall thickening of the sigmoid colon which are not clearly fat attenuation. The intestinal tract is not distended. There is no evidence to suggest acute appendicitis. There is no free intraperitoneal air. There is no drainable fluid collection. There is no free fluid in the abdomen or pelvis. There is no identified abnormally enlarged lymph node in the abdomen or pelvis meeting CT size criteria for adenopathy. There is no acute bony abnormality. There are degenerative changes of the spine. Impression: 1. Fatty wall thickening of the sigmoid colon and right colon consistent with chronic colitis. There is also some low-attenuation wall thickening of the sigmoid colon of non-clear fat attenuation which could reflect active colitis. Infectious and inflammatory etiologies are considered. 2. No otherwise identified potential acute abnormality in the abdomen or pelvis. Dictated by: Dictated on workstation # [id number]
[2023-01-11 07:34] VITALS: BP_SYST 101
== END 2023-01-11 07:35 | disposition home or self-care (01) ==
LOC: EDUNIT# 03:18 → ER 03:20
DX: R10.30 Lower abdominal pain, unspecified (principal); F15.90 Other stimulant use, unspecified, uncomplicated; Z28.311 Partially vaccinated for COVID-19
CPT/HCPCS: 36415; 74177; 80053; 80306; 83690; 83735; 84703; 85007; 85027; 96374; 96375